=== PATIENT | female | born 1940 | race Two or more races ===

== ENCOUNTER 2023-04-02 01:33 | Inpatient (IN) | payer OTHER ==
[2023-04-02] VITALS (23 sets, daily range): BP systolic 92–148; BP diastolic 47–83; PULSE 41–65; RESP 9–22; TEMP 97.5–98.4; O2SAT 94–99
[~2023-04-02] VITALS: Ht 162.6 cm; Wt 90.2 kg
[2023-04-02] MEDS ORDERED: SODIUM CHLORIDE 0.9% 1,000 ML IV ONE (02:00)
[2023-04-02] MEDS ORDERED: ASPirin 325 MG TAB PO ONE (02:00)
[2023-04-02] MEDS ORDERED: ATORVASTATIN 20 MG TAB PO ONE (02:00)
[2023-04-02] MEDS ORDERED: PANTOPRAZOLE 40 MG/10 ML VIAL INJ IV ONE (02:00)
[2023-04-02] MEDS ORDERED: HEPARIN SODIUM (PORCINE) 5000 UNITS/ML 1ML VIAL IV ONE ×2 (02:00→02:15)
[2023-04-02] MEDS ORDERED: ACETAMINOPHEN 325 MG TAB PO PRN (02:00)
[2023-04-02 02:12] LABS: Basophils # (auto) 0.1 10 ^3/uL (0-0.2); Eosinophils # (auto) 0.3 10 ^3/uL (0-0.8); Eosinophils % (auto) 3.8 % (0.0-7.0); Hematocrit 39.3 % (36.0-46.0); Hemoglobin 13.2 g/dL (12.2-16.2); Lymphocytes # (auto) 3.3 10 ^3/uL (0.4-5.4); Lymphocytes % (auto) 35.9 % (10.0-50.0); Mean Corpuscular Hemoglobin 31.9 pg (28.0-32.0); Mean Corpuscular Hgb Conc. 33.7 g/dL (32.0-36.0); Mean Corpuscular Volume 94.7 fL (80.0-100.0); Monocytes # (auto) 0.6 10 ^3/uL (0-1.3); Neutrophils # (auto) 4.8 10 ^3/uL (1.6-8.6); Neutrophils % (auto) 52.3 % (37.0-80.0); Red Blood Cells 4.15 10^6/uL (4.0-5.20); Red Cell Distribution Width 12.9 % (11.8-14.3); White Blood Cell 9.2 10^3/uL (4.4-10.8)
[2023-04-02] MEDS ORDERED: HEPARIN SODIUM (PORCINE) 5000 UNITS/ML 1ML VIAL ONE (02:18)
[2023-04-02] MEDS ORDERED: ANGIOMAX 250 MG VIAL IV ONE (02:18)
[2023-04-02] MEDS ORDERED: VERAPAMIL 2.5MG/ML INJ 2ML VIAL IV ONE (02:18)
[2023-04-02] MEDS ORDERED: fentaNYL CITRATE 100 MCG/2 ML VL ONE (02:19)
[2023-04-02] MEDS ORDERED: SODIUM CHL 0.9% 50 ML ONE (02:19)
[2023-04-02] MEDS ORDERED: MIDAZOLAM HCL 2MG/2ML 2ml VIAL (1mg/ml) ONE (02:20)
[2023-04-02] MEDS ORDERED: LIDOCAINE 2%HCL (LOCAL ANESTH.) INJ 20ML MDV ONE (02:21)
[2023-04-02] MEDS ORDERED: IODIXANOL 320MG/ML 100ML BTL IV ONE ×2 (02:21→02:47)
[2023-04-02 02:46] LABS: Chloride 109 mmol/L (98-107); Potassium 3.4 mmol/L (3.5-5.1); Sodium 142 mmol/L (136-145)
[2023-04-02 02:49] LABS: Calcium 9.3 mg/dL (8.5-10.1)
[2023-04-02 02:53] LABS: INR 0.93 (0.9-1.15); Prothrombin Time 9.8 sec (9.3-11.8)
[2023-04-02 02:54] LABS: Blood Urea Nitrogen 11 mg/dL (9-23); Glucose 121 mg/dL (74-106); Triglycerides 270 mg/dL (< 150)
[2023-04-02] MEDS ORDERED: ATROPINE SULF 1 MG/10ml SYR ONE (02:54)
[2023-04-02 02:55] LABS: Alkaline Phosphatase 96 U/L (46-116); LDL Cholesterol 169 mg/dL (< 100)
[2023-04-02 02:56] LABS: Alanine Aminotransferase 12 U/L (7-40); Albumin 4.2 g/dL (3.2-4.8); Aspartate Aminotransferase 22 U/L (13-40); Bilirubin, Total 0.2 mg/dL (0.2-1.0); Cholesterol 228 mg/dL (< 200); HDL Cholesterol 37 mg/dL (40-59); Total Protein 6.9 g/dL (5.7-8.2)
[2023-04-02] MEDS ORDERED: TICAGRELOR 90 MG TAB ONE (02:57)
[2023-04-02 03:11] LABS: Anion Gap 13 (5-15); Carbon Dioxide 20 mmol/L (20-30)
[2023-04-02] MEDS ORDERED: NITROGLYCERIN 0.4 MG SL TAB SL PRN (03:15)
[2023-04-02] MEDS ORDERED: MORPHINE SULFATE INJ 2 MG/ml SYRG IV PRN (03:15)
[2023-04-02] MEDS: SODIUM CHLOR 0.9% PF (SALINE LOCK) 10ML VIAL/SYR IV SCH ×3 (07:00→21:29)
[2023-04-02] MEDS ORDERED: POTASSIUM CHL 20 Meq TABLET PO ONE (09:00)
[2023-04-02] MEDS: ASPirin 81 mg TAB PO SCH (10:34)
[2023-04-02] MEDS: ATORVASTATIN 20 MG TAB PO SCH (10:35)
[2023-04-02] MEDS: TICAGRELOR 90 MG TAB PO SCH (21:30)
[2023-04-03] VITALS (19 sets, daily range): BP systolic 116–161; BP diastolic 40–94; PULSE 48–73; RESP 10–19; TEMP 97.4–98.3; O2SAT 93–97
[2023-04-03 03:18] LABS: Urine Epithelial Cast None Seen /hpf (<5)
[2023-04-03 03:27] LABS: Urine Bacteria MANY /hpf (None Seen); Urine Blood TRACE /uL (Negative); Urine Clarity HAZY (Clear); Urine Color Yellow (Yellow); Urine Mucus FEW (None Seen); Urine Protein, UAD 1+ (Negative); Urine Specific Gravity 1.029 (1.001-1.035); Urine Urobilinogen Normal (Negative); Urine WBC 325 /hpf (0 - 5)
[2023-04-03 04:49] LABS: Basophils # (auto) 0 10 ^3/uL (0-0.2); Basophils % (auto) 0.7 % (0.0-2.0); Eosinophils # (auto) 0.2 10 ^3/uL (0-0.8); Eosinophils % (auto) 2.3 % (0.0-7.0); Hematocrit 34.3 % (36.0-46.0); Hemoglobin 11.7 g/dL (12.2-16.2); Lymphocytes # (auto) 1.7 10 ^3/uL (0.4-5.4); Lymphocytes % (auto) 22.7 % (10.0-50.0); Mean Corpuscular Hgb Conc. 34.2 g/dL (32.0-36.0); Mean Corpuscular Volume 93.8 fL (80.0-100.0); Monocytes # (auto) 0.6 10 ^3/uL (0-1.3); Monocytes % (auto) 8.3 % (0.0-12.0); Red Blood Cells 3.66 10^6/uL (4.0-5.20); Red Cell Distribution Width 13.1 % (11.8-14.3); White Blood Cell 7.5 10^3/uL (4.4-10.8)
[2023-04-03 05:09] LABS: Chloride 110 mmol/L (98-107); Potassium 3.9 mmol/L (3.5-5.1); Sodium 141 mmol/L (136-145)
[2023-04-03 05:10] LABS: Anion Gap 8 (5-15); Carbon Dioxide 23 mmol/L (20-30)
[2023-04-03 05:11] LABS: Calcium 9.2 mg/dL (8.5-10.1)
[2023-04-03 05:15] LABS: Glucose 94 mg/dL (74-106)
[2023-04-03 05:16] LABS: BUN/Creatinine Ratio 16.1 (10.0-20.0); Blood Urea Nitrogen 15 mg/dL (9-23)
[2023-04-03] MEDS: SODIUM CHLOR 0.9% PF (SALINE LOCK) 10ML VIAL/SYR IV SCH ×2 (05:20→13:45)
[2023-04-03] MEDS ORDERED: POLYETHYLENE GLYCOL 17 GM PWDR PO ONE (08:15)
[2023-04-03] MEDS: ASPirin 81 mg TAB PO SCH (09:23)
[2023-04-03] MEDS: TICAGRELOR 90 MG TAB PO SCH (09:23)
[2023-04-03] MEDS: ATORVASTATIN 20 MG TAB PO SCH (09:23)
[2023-04-03] MEDS ORDERED: TICA90TA PO (16:17)
[2023-04-03] MEDS ORDERED: ATOR-47 PO (16:17)
[2023-04-03] MEDS ORDERED: ASPI-325 PO (16:17)
== END 2023-04-03 17:47 | disposition home or self-care (01) | DRG 322 ==
LOC: EDBD 01:33 → ER 01:33 → TELE 03:09 → DOU IN ICU 03:57 → TELE-CENTR 04-03 15:02
PROVIDERS: ADMIT Internal Medicine; ATTEND Student in an Organized Health Care Education/Training Program
PROC: 027034Z Dilation of Coronary Artery, One Artery with Drug-eluting Intraluminal Device, Percutaneous Approach (ICD-10-PCS; principal; 2023-04-02)
PROC: B211YZZ Fluoroscopy of Multiple Coronary Arteries using Other Contrast (ICD-10-PCS; 2023-04-02)
DX: I21.19 ST elevation (STEMI) myocardial infarction involving other coronary artery of inferior wall (principal); E87.6 Hypokalemia; I10 Essential (primary) hypertension; E66.9 Obesity, unspecified; I25.10 Atherosclerotic heart disease of native coronary artery without angina pectoris; F41.9 Anxiety disorder, unspecified; Z87.891 Personal history of nicotine dependence; Z90.710 Acquired absence of both cervix and uterus; Z68.34 Body mass index [BMI] 34.0-34.9, adult; Z79.02 Long term (current) use of antithrombotics/antiplatelets
CPT/HCPCS: 36415; 71045; 80048; 80053; 80061; 81001; 82962; 83735; 83880; 84484; 85025; 85610; 85730; 86850; 86900; 86901; 87081; 87086; 87088; 87186; 92941; 93005; 93306; 93454; 96361; 96374; 96375; 99152; 99291; C9113; G0378; J2250; Q9967

== ENCOUNTER 2024-06-24 19:33 | Emergency (ER) | payer OTHER ==
[~2024-06-24] VITALS: Ht 165.1 cm; Wt 86.4 kg
[~2024-06-24 19:33] MED LIST: ASPI-325 PO; ATOR-47 PO; TICA90TA PO
--- NOTE | 2024-06-24 19:40 | ECG ---
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
--- NOTE | 2024-06-24 19:45 | ED.PDOC ---
History of Present Illness HPI Comments This is an 83-year-old female who comes in with chief complaint of tachycardia and states that she is now feeling it in her back. The patient states that she was at home and her heart started to race so she got somewhat nervous. It worsened over the past 1-2 hours so she called 911. She denies any chest pain, nausea or vomiting. The patient denies any fever or shortness for breath. The patient states that this is happened before but only briefly. When the paramedics arrived, the patient's heart rate was jumping and between 103-160. Time Seen by MD: 19:34 Reviewed Notes: Nurses Notes, Clean Out Driller Notes, Medications, Allergies (No allergies to medications) Allergies: Coded Allergies: NO KNOWN ALLERGIES (Unverified , 04/02/23) Home Meds Active Scripts Atorvastatin Calcium (ATORVASTATIN CALCIUM) 80 Mg Tab, 80 MG PO DAILY for 30 Days, #30 TAB 0 Refills Prov:LINDA TORRES DO 04/03/23 Ticagrelor Base (BRILINTA) 90 Mg Tab, 90 MG PO BID for 30 Days, #60 TAB 3 Refills Prov:LINDA TORRES DO 04/03/23 Aspirin (Aspirin Low Dose) 81 Mg Tab, 81 MG PO DAILY for 90 Days, #90 TAB 0 Refills Prov:LINDA TORRES DO 04/03/23 Information Source: Patient, Emergency Med Personnel Mode of Arrival: EMS Severity: Moderate Timing: Hours Duration: Since onset Prehospital treatment: 12 Lead EKG, Lining Cutter, IVF Associated signs and symptoms The patient has rapid heart rate Past Medical History PAST MEDICAL HISTORY: [place], [place] Surgical History: Appendectomy, Hysterectomy, PTCA, Denies all surgeries 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: No Pertinent 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 Family History Family History: Family hx of Cancer Social History Smoker: Quit Greater Than 1 Year Alcohol: Denies ETOH Use Drugs: Denies Drug Use Lives In: Home Constitutional: denies: chills, diaphoresis, fatigue, fever, malaise, sweats, weakness, others EENTM: denies: blurred vision, double vision, ear bleeding, ear discharge, ear drainage, ear pain, ear ringing, eye pain, eye redness, hearing loss, mouth pain, mouth swelling, nasal discharge, nose bleeding, nose congestion, nose pain, photophobia, tearing, throat pain, throat swelling, voice changes, others Respiratory: denies: cough, hemoptysis, orthopnea, SOB at rest, shortness of breath, SOB with excertion, stridor, wheezing, others Cardiovascular: reports: palpitations; denies: chest pain, dizzy spells, diaphoresis, Dyspnea on exertion, edema, irregular heart beat, left arm pain, lightheadedness, PND, syncope, others Gastrointestinal: denies: abdomen distended, abdominal pain, blood streaked bowels, constipated, diarrhea, dysphagia, difficulty swallowing, hematemesis, melena, nausea, poor appetite, poor fluid intake, rectal bleeding, rectal pain, vomiting, others Genitourinary: denies: abnormal vagina bleeding, burning, dyspareunia, dysuria, flank pain, frequency, hematuria, incontinence, pain, , vagina discharge, urgency, others Neurological: denies: dizziness, fainting, headache, left sided numbness, left sided weakness, numbness, paresthesia, pre-existing deficit, right sided numbness, right sided weakness, seizure, speech problems, tingling, tremors, weakness, others Musculoskeletal: denies: back pain, gout, joint pain, joint swelling, muscle pain, muscle stiffness, neck pain, others Integumetry: denies: bruises, change in color, change in hair/nails, dryness, laceration, lesions, lumps, rash, wounds, others Allergic/Immunocompromised: denies: Difficulty Healing, Frequent Infections, Hives, Itching, others Hematologic/Lymphatic: denies: anemia, blood clots, easy bleeding, easy bruising, swollen glands, others Endocrine: denies: excessive hunger, excessive sweating, excessive thirst, excessive urination, flushing, intolerance to cold, intolerance to heat, unexplained weight gain, unexplained weight loss, others Psychiatric: denies: anxiety, bipolar disorder, depression, hopeless, panic disorder, schizophrenia, sleepless, suicidal, others Physical Exam General Appearance: Mild Distress HEENT: Normal ENT Inspection, Pharynx Normal, TMs Normal Neck: Full Range of Motion, Non-Tender, Normal, Normal Inspection Respiratory: Chest Non-Tender, Lungs Clear, No Accessory Muscle Use, No Respiratory Distress, Normal Breath Sounds Cardiovascular: No Edema, No JVD, No Murmur, No Gallop, Normal Peripheral Pulses, Regular Rate/Rhythm Breast Exam: Deferred Gastrointestinal: No Organomegaly, Non Tender, No Pulsatile Mass, Normal Bowel Sounds, Soft Genitalia: Deferred Pelvic: Deferred Rectal: Deferred Extremities: No calf tenderness, Normal capillary refill, Normal inspection, Normal range of motion, Non-tender, No pedal edema Musculoskeletal : Apperance: Normal Neurologic: Alert, parimutuel clerk II-XII nml as Tested, Motor Weakness, Normal Affect, Normal Mood, No Sensory Deficits Cerebellar Function: Normal Reflexes: Normal Skin: Dry, Normal Color, Warm Lymphatic: No Adenopathy Was a procedure done? Was a procedure done?: No EKG EKG : Pulse Rate (adult): 86 [place]: Normal Cardiac Rhythm: NSR ST: Nonsp Differential Dx Considerations may include: AFib rapid response, [place], CHF, generalized weakness X-Ray, Labs, Meds, VS Vital Signs Date Time Temp Pulse Resp B/P (MAP) Pulse Ox O2 Delivery O2 Flow Rate FiO2 06/24/24 21:11 71 06/24/24 19:45 86 06/24/24 19:35 98.3 103 18 131/85 (100) 95 98.3 06/24/24 19:33 86 Lab Test 06/24/24 21:18 06/24/24 19:58 Range/Units Troponin I High Sensitivity Pending 24 </=34 ng/L White Blood Count 7.0 4.4-10.8 10^3/uL Red Blood Count 4.16 4.0-5.20 10^6/uL Hemoglobin 13.6 12.2-16.2 g/dL Hematocrit 39.6 36.0-46.0 % Mean Corpuscular Volume 95.2 80.0-100.0 fL Mean Corpuscular Hemoglobin 32.6 H 28.0-32.0 pg Mean Corpuscular Hemoglobin Concent 34.3 32.0-36.0 g/dL Red Cell Distribution Width 13.6 11.8-14.3 % Platelet Count 226 140-450 10^3/uL Mean Platelet Volume 7.4 6.9-10.8 fL Neutrophils (%) (Auto) 59.4 37.0-80.0 % Lymphocytes (%) (Auto) 27.2 10.0-50.0 % Monocytes (%) (Auto) 9.7 0.0-12.0 % Eosinophils (%) (Auto) 3.1 0.0-7.0 % Basophils (%) (Auto) 0.6 0.0-2.0 % Neutrophils # (Auto) 4.1 1.6-8.6 10 ^3/uL Lymphocytes # (Auto) 1.9 0.4-5.4 10 ^3/uL Monocytes # (Auto) 0.7 0-1.3 10 ^3/uL Eosinophils # (Auto) 0.2 0-0.8 10 ^3/uL Basophils # (Auto) 0 0-0.2 10 ^3/uL Nucleated Red Blood Cells 0.0 % D-Dimer, Quantitative 0.37 0.0-0.49 mg/L FEU Sodium Level 142 136-145 mmol/L Potassium Level 4.1 3.5-5.1 mmol/L Chloride Level 109 H 98-107 mmol/L Carbon Dioxide Level 23 20-31 mmol/L Anion Gap 10 5-15 Blood Urea Nitrogen 20 9-23 mg/dL Creatinine 1.01 0.550-1.02 mg/dL Glomerular Filtration Rate Calc 56 >90 mL/min BUN/Creatinine Ratio 19.8 10.0-20.0 Serum Glucose 94 74-106 mg/dL Calcium Level 10.3 8.7-10.4 mg/dL Magnesium Level 2.2 1.6-2.6 mg/dL B-Type Natriuretic Peptide 91.25 0-100 pg/mL The patient was CBC is within normal limits The chemistry panel is within normal limits The patient's troponin is negative At this time, the patient is being discharged The patient was D-dimer is negative The patient was going to be discharged We spoke with the [facility] physician and he was going to set up the patient for outpatient follow up with the nuclear supervising operator Images Reviewed?: Images reviewed and evaluated by me Time of 1ST Reevaluation: 19:45 Reevaluation 1ST: Unchanged Patient Education/Counseling: Diagnosis, Treatment, Prognosis, Need For Follow Up Family Education/Counseling: No Family Present Departure 1 Departure Time of Disposition: 21:46 Impression: Primary Impression: Palpitations Disposition: 01 HOME / SELF CARE / HOMELESS Condition: Fair Discharged With: Self Critical Care Note Critical Care Time?: No Stability Stability form required: No Heart Score Heart Score: Heart Score Response (Comments) Value History Moderate Suspicious 1 EKG Repolarization Disturb 1 Age >65 2 Risk Factors >3 or Hx ASHD 2 Troponin Normal limit 0 Total 6 TRINY TEMPLE MD Jun 24, 2024 19:45
[2024-06-24 20:31] LABS: Basophils # (auto) 0 10 ^3/uL (0-0.2); Basophils % (auto) 0.6 % (0.0-2.0); Eosinophils # (auto) 0.2 10 ^3/uL (0-0.8); Eosinophils % (auto) 3.1 % (0.0-7.0); Hematocrit 39.6 % (36.0-46.0); Hemoglobin 13.6 g/dL (12.2-16.2); Lymphocytes # (auto) 1.9 10 ^3/uL (0.4-5.4); Lymphocytes % (auto) 27.2 % (10.0-50.0); Mean Corpuscular Hemoglobin 32.6 pg (28.0-32.0); Mean Corpuscular Hgb Conc. 34.3 g/dL (32.0-36.0); Mean Corpuscular Volume 95.2 fL (80.0-100.0); Monocytes # (auto) 0.7 10 ^3/uL (0-1.3); Monocytes % (auto) 9.7 % (0.0-12.0); Neutrophils # (auto) 4.1 10 ^3/uL (1.6-8.6); Neutrophils % (auto) 59.4 % (37.0-80.0); Platelet Count (auto) 226 10^3/uL (140-450); Red Blood Cells 4.16 10^6/uL (4.0-5.20); Red Cell Distribution Width 13.6 % (11.8-14.3)
[2024-06-24 20:44] LABS: Anion Gap 10 (5-15); Carbon Dioxide 23 mmol/L (20-31); Potassium 4.1 mmol/L (3.5-5.1); Sodium 142 mmol/L (136-145)
[2024-06-24 20:45] LABS: Calcium 10.3 mg/dL (8.7-10.4)
[2024-06-24 20:49] LABS: Glucose 94 mg/dL (74-106)
[2024-06-24 20:50] LABS: BUN/Creatinine Ratio 19.8 (10.0-20.0); Blood Urea Nitrogen 20 mg/dL (9-23); Magnesium 2.2 mg/dL (1.6-2.6)
[2024-06-24 20:52] LABS: Chloride 109 mmol/L (98-107)
--- NOTE | 2024-06-24 21:35 | DVH ---
CHEST RADIOGRAPH Indication: sob Technique: Single frontal view of the chest was obtained Comparison: XY CHEST PORTABLE on DOS: 04/02/23 FINDINGS: There is a significant dextrocurvature involving the thoracic spine. Heart size within normal limits trachea is midline and mainstem bronchi are well aerated in the carot id sukh and pulmonary arteries are normal. There are increased interstitial markings noted bilaterally possible early chronic lung disease follo w-up CT examination is suggested IMPRESSION: 1. No acute findings there is a dextrocurvature involving the thoracic spine and there are increased interstitial markings noted . I would recommend follow-up CT examination further assessment
[2024-06-24 22:40] VITALS: BP 149/66; PULSE 58; RESP 18; TEMP 98.5; O2SAT 95
--- NOTE | 2024-06-25 06:38 | ECG ---
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
--- NOTE | 2024-06-25 06:38 | ECG ---
[facility] Test Date: 2024-06-24 Test Time: 22:29:13 Pat Name: WILMA DURANT Department: ER Room: Gender: F Ham Sawyer: ER : 1940 Requested By: TRINY TEMPLE Order Number: [id number] Reading MD: Stephen Puga Measurements Intervals [place] Rate: 59 P: 46 MD: 158 QRS: -1 QRSD: 80 T: 65 QT: 398 QTc: 395 Interpretive Statements Sinus rhythm Atrial premature complex Electronically Signed On 06-25-2024 20:57:05 PDT by Stephen Puga Please click the below link to view image of tracing.
== END 2024-06-24 22:43 | disposition home or self-care (01) ==
LOC: EDSEX 19:33 → EDBD 19:33 → ER 19:33
DX: R00.2 Palpitations (principal); I25.2 Old myocardial infarction; E78.5 Hyperlipidemia, unspecified; Z90.710 Acquired absence of both cervix and uterus; Z90.49 Acquired absence of other specified parts of digestive tract; Z79.899 Other long term (current) drug therapy; Z79.82 Long term (current) use of aspirin; Z79.02 Long term (current) use of antithrombotics/antiplatelets
CPT/HCPCS: 36415; 71045; 80048; 83735; 83880; 84484; 85025; 85379; 93005